=== PATIENT | female | born 1945 | race Caucasian/White ===

== ENCOUNTER 2016-12-09 10:36 | Inpatient (IN) | payer OTHER ==
[~2016-12-09] VITALS: Ht 170.2 cm; Wt 76.2 kg
--- NOTE | ~2016-12-09 | CNG ---
[facility] [place] [address] CYTO-NONGYN REPORT PROCEDURE Name: WILLOW DAVIS Room #: 421-P DIS IN M.R.#: [id number] Admission: 12/09/16 Date of : 43 Discharge: 12/11/16 Report #: [id number] Path Case #: [id number] CYTOPATHOLOGY REPORT COLLECTION DATE: 12/10/2016 RECEIVED DATE: 12/10/2016 SUBMITTING PHYS: Dr. Min Gonzalez OTHER PHYS: Dr. Chris Oquendo CLINICAL HISTORY: SOB/Pneumonia. PROCEDURE: A. Pass [address] Gonzalez yielding fluid. Two H and E slides, and 45 mL from needle rinsed in formalin were submitted to the lab. B. Passes1,[address] Gonzalez yielding fluid. Four H and E slides, and 45 mL from needle rinsed in formalin were submitted to the lab. SPECIMEN(S) RECEIVED: A.EBUS guided TBNA, Right lung mass B.EBUS guided TBNA, lymph node 7 C.Bronchial wash, NOS * * * * * * * * * * * * FINAL DIAGNOSIS: A. 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 . B. Lymph node, lymph node 7, EBUS guided TBNA: - FEW ATYPICAL CELLS IDENTIFIED ALONG WITH NECROSIS SUSPICIOUS FOR MALIGNANCY. - Background of reactive bronchial epithelial cells. - No definite lymph node tissue present. C. Lung, bronchial washing: - No definite malignant epithelial cells present. - Bronchial epithelial cells, reactive squamous epithelial cells as well as numerous alveolar macrophages along with inflammatory cells. COMMENT: Part A and B co-reviewed with Dr. Adriana Dalton. The concurrent biopsy tissue ([id number]) showed a squamous cell carcinoma as well. Please see separate report for details. (IUV:pit; 12/11/2016) PATHOLOGIST: Lea Cortés M.D. REPORT ELECTRONICALLY SIGNED BY: Lea Cortés M.D. [address] [address] CYTO-NONGYN REPORT PROCEDURE Name: WILLOW DAVIS Room #: 421-P [facility] IN ..#: [id number] Admission: 12/09/16 Date of : 43 Discharge: 12/11/16 Report #: [id number] Path Case #: [id number] DATE/TIME: 12/11/2016 16:35 * * * * * * * * * * * * GROSS PATHOLOGY: A. EBUS guided TBNA, Right lung mass: The specimen is labeled "Willow Davis" and consists of two H and E slides. Forty-five mL of red fluid in formalin from the needle rinse is also submitted and a cell block only was prepared from this material. B. EBUS guided TBNA, lymph node 7: The specimen is labeled "Willow Davis" and consists of four H and E slides. Forty-five mL of red fluid in formalin from the needle rinse is also submitted and a cell block only was prepared from this material. C. Bronchial wash, NOS: The specimen is submitted unfixed, labeled "Willow Davis". Received by the Cytology Department is 5 mL of red fluid. One ThinPrep slide was prepared. (clt 12.10.2016) IMMEDIATE EVALUATION: A. EBUS guided TBNA Right lung mass: Per Dr. Cortés: Atypical cells, lesional material present. B. EBUS guided TBNA Lymph node 7: Per Dr. Cortés: Pass 1-blood only. B. EBUS guided TBNA Lymph node 7: Per Dr. Cortés: Needle changed Pass 3- Bronchial epithelial cells and macrophages few histiocytes. Professional services performed under supervision of [facility] at [address] [place] [address] , [place] [address]. ULTRASOUND MANAGER(S): BIJAL Santos[facility] INITIAL CPT CODE(S): A; 13329, 63775, 94021 B; 01676, 63953, 00595, 64996 C; 16291 Professional services performed by [facility] at [address] [address] [address], [place] [address] Technical services performed by [facility] at [address] [place] [address]., [address], [place] [address]. [address], [address] [place] [address] PHONE: [phone] DIRECTOR: Pratik Maria M.D. * * * END OF REPORT * * *
--- NOTE | ~2016-12-09 | H ---
[facility] [place] [address] HISTORY AND PHYSICAL Name: WILLOW KEARNEY Room #: 421-P ADM IN M.R.#: [id number] Admission: 12/09/16 Attend Phys: Chris Cisneros MD, FAAF Discharge: Date of : 43 Report #: [id number] THIS REPORT FOR: //name// CC: Chris Cisneros DATE OF SERVICE: 12/09/2016 CHIEF COMPLAINTCHIEF COMPLAINT: Lung mass; cough; hemoptysis. HISTORY OF PRESENT ILLNESS: The patient is a 71-year-old white female, well known to me. She has been sick over the last several weeks with cough, some hemoptysis as well, and shortness of breath especially with exertion. She came to the office briefly today and I directed her immediately to the emergency department for a stat chest x-ray and labs. X-ray showed an infiltrate in the right lung. Her D-dimer was positive which prompted a CT scan of the chest with angiography. This showed a lung mass. She was admitted to the hospital, antibiotics were started, Rocephin and Zithromax, and pulmonology and cardiothoracic surgery consults were requested. PAST MEDICAL HISTORY: COPD, gallstones, laparoscopic cholecystectomy ____ in 2009, left endarterectomy, smoker's bronchitis, gastroesophageal reflux, venous insufficiency with bilateral great saphenous vein laser ablations. MEDICATIONS: Albuterol inhaler 2 puffs q.4 hours p.r.n. and p.r.n. aspirin 325 mg p.o. daily, Symbicort 160/4.5 two puffs b.i.d., DuoNeb inhalation solution one vial q.i.d. p.r.n., omeprazole 20 mg p.o. b.i.d. ALLERGIES: CELEBREX, MORPHINE, ADHESIVE TAPE, CODEINE. SOCIAL HISTORY: She is , smoked in the past, nondrinker. FAMILY HISTORY: Positive for diabetes. REVIEW OF SYSTEMS: CONSTITUTIONAL: No fever or chills, nausea, vomiting, diarrhea. EYES: No visual changes. ENT: No problems with hearing, swallow, taste or smell. CARDIOVASCULAR: She has chest congestion and painful cough. She has shortness of breath. RESPIRATORY: Shortness of breath, cough, hemoptysis, COPD now and new finding of lung mass. GASTROINTESTINAL: No abdominal pain. GENITOURINARY: No problems urinating. MUSCULOSKELETAL: Some arthritis. NEUROLOGIC: No paresis, paralysis or paresthesias. PSYCHIATRIC: No disturbing thoughts. [address] [address] HISTORY AND PHYSICAL Name: WILLOW KEARNEY Room #: 421-P [facility] IN ..#: [id number] Admission: 12/09/16 Attend Phys: Chris Cisneros MD, FAAF Discharge: Date of : 43 Report #: [id number] DERMATOLOGIC: No disturbing lesions or rash. Remainder of system review is negative. PHYSICAL EXAMINATION: VITAL SIGNS: Temperature 36.9, pulse 103, respirations 24. This is on 2 liters of oxygen by nasal cannula. Blood pressure is 132/69. Oxygen saturation on 2 L 99%. She weighs 167 pounds or 75.75 kilograms. GENERAL: She is in no acute distress. Wearing oxygen. Speaks full sentences and engages in conversation. HEENT: Pupils equal, round, reactive to light and accommodation. Extraocular muscles intact. Pharynx unremarkable. NECK: Supple. COR: S1, S2 regular. CHEST: Raspy breath sounds with cough, diminished airflow. ABDOMEN: Soft, nontender. EXTREMITIES: No edema. NEUROLOGIC: She is intact without focal deficit. LABORATORY DATA: EKG shows sinus tachycardia at 100 with normal axis, QRS intervals unchanged from September 2010. ABG; pH 7.493, pCO2 of 31.6, pO2 was 89.6, saturation was 96.7%. Carboxyhemoglobin 0.3. D-dimer 0.64. Glucose 113. Anion gap 6. White count is 19.6 with 88% segmented neutrophils, 10% lymphocytes. Serum chemistry: Sodium 140, potassium 3.8, chloride 103, CO2 of 31, BUN 17, creatinine 1.0. Estimated glomerular filtration rate 55. Calcium 9.1. Troponin less than 0.04. Hemoglobin 13.8, platelets 327,000. Chest x-ray showed a right lower lobe pneumonitis from pneumonia. CT scan with angiography showed a large right hilar mass invading the mediastinum especially involving the right middle and lower lobe hilar structures. There is encasement of the adjacent bronchi, pulmonary artery branches and pulmonary veins with incomplete opacifications in the right lower lobe pulmonary arteries to visualize the opacified pulmonary arteries, demonstrates no swelling defects to suggest pulmonary emboli. There is postobstructive pneumonia in the right middle lobe and lower lobe with small pleural effusion. Some increased mediastinal adenopathy as well as left hilar mass could be metastatic disease, second primary and left hilar region is not excluded, no adrenal metastatic disease is seen, the primary consideration would be bronchogenic carcinoma in the right hilar region with probable metastatic disease, a second malignancy of a separate origin in the left hilar region is not excluded. Adenopathy of other etiology considered, but less likely. [facility] [address] [place] [address] HISTORY AND PHYSICAL Name: WILLOW KEARNEY Room #: 421-P [facility] IN ..#: [id number] Admission: 12/09/16 Attend Phys: Chris Cisneros MD, EVELYN Discharge: Date of : 43 Report #: [id number] ASSESSMENT: Lung mass, cough, hemoptysis, chronic obstructive pulmonary disease, leukocytosis. <ELECTRONICALLY SIGNED> By: Chris Cisneros MD, SARAH, FACEP 12/10/16 1022 0046 0319 Chris Cisneros MD, SARAH, FACEP /nt
--- NOTE | ~2016-12-09 | EKG ---
[address] [address] [employer] [place] [address] ELECTROCARDIOGRAM REPORT Name: WILLOW KEARNEY Room #: [facility].#: [id number] Admission: Attend Phys: Discharge: Date of : 43 Report #: [id number] THIS REPORT FOR: //name// [facility] ED Test Date: 2016-12-09 Test Time: 10:41:54 Pat Name: WILLOW MILLERTATIANA Department: Room: Gender: F Hosiery Knitter: [id number] : 1945 Requested By: Bren De Souza Order Number: [id number] MD: Measurements Intervals Hermon Rate: 100 P: 47 NC: 181 QRS: 14 QRSD: 107 T: 57 QT: 329 QTc: 425 Interpretive Statements Sinus tachycardia Incomplete left bundle branch block ST elevation, consider inferior injury Compared to ECG 10/15/2012 10:40:33 Left bundle-branch block now present ST (T wave) deviation now present Myocardial infarct finding now present Sinus rhythm no longer present [email or web address] By: 1041 1041 Epiphany MD Claribel /EPI
--- NOTE | ~2016-12-09 | S ---
[facility] [place] [address] SURGICAL PATH RPT PROCEDURE Name: WILLOW KEARNEY Room #: 421-P DIS IN M.R.#: [id number] Admission: 12/09/16 Date of : 43 Discharge: 12/11/16 Report #: [id number] Path Case #: [id number] PATHOLOGY REPORT COLLECTION DATE: 12/10/2016 RECEIVED DATE: 12/10/2016 SUBMITTING PHYS: Dr. Min Gonzalez OTHER PHYS: Dr. Chris Oquendo SPECIMEN(S) RECEIVED: A.R lung mass * * * * * * * * * * * * FINAL DIAGNOSIS: Lung, right lung mass, biopsy: - INVASIVE MODERATELY DIFFERENTIATED SQUAMOUS CELL CARCINOMA. (IUV:betsy; 12/11/2016) COMMENT: Co-review: Dr. Adriana Dalton. Findings are communicated to Dr. Min Gonzalez at approximately 1:45 p.m. on 12/11/2016. (IUV:betsy; 12/11/2016) PATHOLOGIST: Lea Cortés M.D. REPORT ELECTRONICALLY SIGNED BY: Lea Cortés M.D. DATE/TIME: 12/11/2016 16:38 * * * * * * * * * * * * GROSS PATHOLOGY: Received in formalin labeled "Red Andre lung mass," are multiple (greater than 10) segments of caldwell soft tissue measuring 2.5 x 0.3 x 0.2 cm in aggregate dimensions and ranging from 0.2 to 0.4 cm in maximum dimension. The specimen is filtered and submitted entirely in cassette A1. (TSD; 12/10/2016) CLINICAL HISTORY: Shortness of breath/pneumonia INITIAL CPT CODE(S): A; 02239 Professional services performed by [facility] at [facility] [address] [place] [address] SURGICAL PATH RPT PROCEDURE Name: WILLOW KEARNEY Room #: 421-P DIS IN M.R.#: [id number] Admission: 12/09/16 Date of : 43 Discharge: 12/11/16 Report #: [id number] Path Case #: [id number] [address], [place] [address] Technical services performed by [facility] at [address] [place] [address], [facility] [address] [address]. [place] [address] PHONE: [phone] DIRECTOR: Pratik Maria M.D. * * * END OF REPORT * * *
--- NOTE | ~2016-12-09 | HC ---
[facility] [place] [address] CONSULTATION Name: WILLOW KEARNEY Room #: 421-P [facility] IN M.R.#: [id number] Admission: 12/09/16 Attend Phys: Chris Cisneros MD, [facility] Discharge: 12/11/16 Date of : 43 Report #: [id number] THIS REPORT FOR: //name// CC: Chris Cisneros MD DATE OF SERVICE: 12/09/2016 PULMONARY CONSULTATION DATE OF SERVICE: 12/09/2016 REFERRING PROVIDER: Chris Cisneros MD REASON FOR CONSULTATION: Abnormal CT scan of the chest. CHIEF COMPLAINT: Shortness of breath and chest pain. HISTORY OF PRESENT ILLNESS: Our group was asked to see the patient in consultation while hospitalized at [facility] and seen as a onetime consult in 06/2014 regarding her COPD, but no subsequently follow up on the patient's part. She has known history of COPD for which she has been taking Symbicort and nebulized treatments up to 4 times daily, has been having some increasing shortness of breath, some occasional cough with some clear to white sputum production. Has had some right-sided upper chest pain and shoulder pain, some of it posteriorly, somewhat pleuritic in nature and this prompted an Emergency Room visit today. Recently been on some systemic steroids and antibiotics with no improvement. On presentation to the Emergency Department, given symptoms, she underwent CT scan of the chest PE protocol, which revealed right hilar mass that seems to be obstructing right middle and lower lobe bronchus, perhaps the bronchus intermedius as well as some of the pulmonary vasculature on that side. Also appears to be a contralateral left hilar mass concerning for advanced lung cancer. The patient has also been complaining of some headaches and ear pain. Denies any fevers, chills or sweats. Minimal sputum production at this time, rare hemoptysis recently noted, not seeing improvement with her nebulized treatments. Only prior malignancy has been skin cancers. ALLERGIES: Include NARCOTICS, which she said caused rash and CELEBREX. PAST MEDICAL HISTORY: 1. History of lumbar spine disease, status post surgery. 2. History of cholecystectomy. 3. Chronic obstructive pulmonary disease. SOCIAL HISTORY: The patient is an ex-smoker, quitting about 5 years ago. [facility] [address] [place] [address] CONSULTATION Name: WILLOW KEARNEY Room #: 421-P [facility] IN [facility].#: [id number] Admission: 12/09/16 Attend Phys: Chris Cisneros MD, [facility] Discharge: 12/11/16 Date of : 43 Report #: [id number] significant alcohol consumption. Lives independently with her , but does have 47-klmx-klca history of tobacco use. FAMILY HISTORY: Significant for father who of an accident at 54 and mother with congestive heart failure and at 83. REVIEW OF SYSTEMS: CONSTITUTIONAL: No fevers, chills or sweats. ENT: No upper respiratory congestion or rhinorrhea. Has had some ear pain and headaches. CARDIOVASCULAR: Chest pain as described. GASTROINTESTINAL: No nausea, vomiting, diarrhea, constipation or abdominal pain. Has had some ongoing weight loss of about 35 pounds since April. GENITOURINARY: No dysuria, no frequency. INTEGUMENT: Denies any new rash. MUSCULOSKELETAL: No joint pains or swelling. PHYSICAL EXAMINATION: VITAL SIGNS: Afebrile, pulse 100 and regular, respiratory rate 24, blood pressure 142/80, oxygen saturation 98% on 2 liters. GENERAL: This is a pleasant elderly woman in no distress. HEENT: Clear oropharynx, Mallampati 2 airway, no thrush, no erythema. NECK: Supple, no lymphadenopathy. LUNGS: Diminished on the right, particularly right lower half of the chest with markedly diminished breath sounds, occasional wheeze. CARDIOVASCULAR: Heart is tachycardic, but regular. No murmurs noted. ABDOMEN: Soft, nontender, no masses. EXTREMITIES: Without edema. They are warm with 2+ pulses. INTEGUMENT: No rash noted. LABORATORY DATA: CT scan of the chest as described in HPI. White blood cell count 20,000, hemoglobin 14, hematocrit 42, platelet count 327. Sodium 140, potassium 3.8, chloride 103, bicarbonate 31, BUN 17, creatinine 1.0, glucose 113. Blood gas on 2 liters revealed pH 7.49, pCO2 of 32, pO2 of 90, bicarbonate 24. D-dimer was 0.64. IMPRESSION: 1. Right hilar mass and left hilar mass, worrisome for advanced lung cancer. 2. Chronic obstructive pulmonary disease with acute exacerbation. 3. Probable post-obstructive pneumonia. 4. Leukocytosis. SUGGESTIONS: 1. Change Rocephin to Zosyn and azithromycin. 2. Arrange for her fiberoptic bronchoscopy with biopsy. This may be best done with endobronchial ultrasound. Subsequent needle aspiration of the left hilar [facility] [address] [place] [address] CONSULTATION Name: WILLOW KEARNEY Room #: 421-P DIS IN M.R.#: [id number] Admission: 12/09/16 Attend Phys: Chris Cisneros MD, [facility] Discharge: 12/11/16 Date of : 43 Report #: [id number] mass as well as endobronchial mass on the right will need to be done under general anesthesia for endobronchial ultrasound portion. 3. MRI of the brain. 4. Consider PET scan as an outpatient to evaluate for further findings of advanced cancer. 5. Consider Oncology consultation. 6. Steroid taper. 7. Frequent bronchodilators. 8. Discussed at length with the patient and sister. All questions answered. <ELECTRONICALLY SIGNED> By: Min Gonzalez MD 12/12/16 1014 1455 1552 Min Gonzalez MD /nt
[2016-12-09 10:36] VITALS: BP 132/69
[~2016-12-09 10:36] MED LIST: ALBUTEROL2.5 MG/32 INH; ALEVE220 M1 PO; ALPRAZOLAM 0.0.25 M1 PO; ALPRAZOLAM 0.50.5 M1 PO; AMBIEN 5 MG TABL5 M1 PO; ASPIRIN325 PO; COLACE 100 MG100 MG PO; COLACE100 MG PO; DUONEB 2.5-0.5 M3 ML INH; HYDROCODON-ACE1 EAC5 PO; MAGNESIUM400 MG PO; MOM PO; MUCINEX600 MG PO; POTASSIUM99 M1 PO; PREDNISONE 20 M20 M1 PO; PRILOSEC 20 MG20 MG PO; PROAIR HFA8.5 GM INH; PROTONIX40 M2 PO; PROVENTIL HFA6.7 G1 INH; ROBAXIN 750 MG750 M1 PO; ROCEPHIN 1 GM VL1 G1 IV; SOLU-MEDRO125 MG/24 IV; SPIRIVA INH; SYMBICORT160 MCG/4. IH; XANAX 0.25 MG0.25 MG PO; ZITHROMAX
[2016-12-09 11:02] LABS: HEMATOCRIT 42.1 % (37.0-47.0); HEMOGLOBIN 13.8 gm/dL (12.0-15.0); MANUAL DIFF YES; MCH 26.7 pg (26.0-34.0); MCHC 32.9 g/dL (28.0-37.0); MCV 81.2 fL (80.0-100.0); PLATELET COUNT 327 thou/uL (150-400); RBC 5.18 mil/uL (4.20-5.00); WBC 19.6 thou/uL (4.0-11.0)
[2016-12-09 11:11] LABS: CALCIUM 9.1 mg/dL (8.5-10.1); POTASSIUM 3.8 mmol/L (3.5-5.1)
[2016-12-09 11:16] LABS: ABG SAMPLE TYPE ARTERIAL; BE(vivo) 1.2 mmol/L (-2 to +3); HCO3 23.7 mmol/L (22.0-26.0); LACTATE 1.65 mmol/L (0.5-2.0); O2(CT) 19.8 mL/dL (15.0-23.0); O2Hb 96.7 % (92.0-98.0); PCO2 31.6 mmHg (35.0-45.0); PO2 89.6 mmHg (80.0-100.0); STICK SITE R.RADIAL; pH 7.493 (7.360-7.450); sO2 97.5 % (92.0-98.0); tCO2 24.7 mmol/L (24.0-30.0)
[2016-12-09 11:30] LABS: ABSOLUTE NEUTROPHILS 17.2 thou/uL (1.4-8.2); PLATELET ESTIMATE NORMAL; TOTAL CELL COUNT 100
[2016-12-09 11:31] VITALS: BP 142/80
[2016-12-09 12:21] VITALS: BP 117/50
[2016-12-09 12:35] VITALS: BP 140/63
[2016-12-09 15:17] VITALS: BP 136/57
[2016-12-09 15:51] LABS: PROTIME 9.3 Seconds (9.3-11.4)
[2016-12-09 19:27] VITALS: BP 126/70
[2016-12-10 03:40] VITALS: BP 122/58
[2016-12-10 10:01] VITALS: BP 123/47
[2016-12-10 10:30] VITALS: BP 125/76
[2016-12-10 17:07] VITALS: BP 99/48
[2016-12-10 20:00] VITALS: BP 116/51
[2016-12-11 04:00] VITALS: BP 106/65
[2016-12-11 08:42] VITALS: BP 128/75
[2016-12-11] MEDS ORDERED: AUGMENTIN 875875 MG PO (10:07)
[2016-12-11 12:33] VITALS: BP 128/75
== END 2016-12-11 13:19 | disposition home or self-care (01) | DRG 166 ==
LOC: ER 10:36 → 4E 11:31 → EROBS 11:31 → 4E 12:26
PROVIDERS: Emergency Medicine; Internal Medicine Pulmonary Disease
PROC: 0BBF8ZX Excision of Right Lower Lung Lobe, Via Natural or Artificial Opening Endoscopic, Diagnostic (ICD-10-PCS; principal; 2016-12-10)
DX: J44.0 Chronic obstructive pulmonary disease with (acute) lower respiratory infection (principal); J18.9 Pneumonia, unspecified organism; R04.2 Hemoptysis; R91.8 Other nonspecific abnormal finding of lung field; J44.1 Chronic obstructive pulmonary disease with (acute) exacerbation; K21.9 Gastro-esophageal reflux disease without esophagitis; I73.9 Peripheral vascular disease, unspecified; Z90.49 Acquired absence of other specified parts of digestive tract; Z88.8 Allergy status to other drugs, medicaments and biological substances; Z88.6 Allergy status to analgesic agent; Z88.5 Allergy status to narcotic agent; Z88.3 Allergy status to other anti-infective agents; Z87.891 Personal history of nicotine dependence; Z85.828 Personal history of other malignant neoplasm of skin; Z99.81 Dependence on supplemental oxygen; Z82.49 Family history of ischemic heart disease and other diseases of the circulatory system
CPT/HCPCS: 10183; 50010; 62110; 62900; 70005

== ENCOUNTER 2017-01-03 10:17 | Inpatient (IN) | payer OTHER ==
[~2017-01-03] VITALS: Ht 172.7 cm; Wt 80.1 kg
--- NOTE | ~2017-01-03 | D ---
[facility] [place] [address] DISCHARGE SUMMARY Name: WILLOW KEARNEY Room #: 217-P ADM IN M.R.#: [id number] Admission: 01/03/17 Attend Phys: Juan Tellez DO Discharge: Date of : 43 Report #: [id number] THIS REPORT FOR: //name// CC: Chris Gonzalez DATE OF SERVICE: 01/12/2017 DATE OF ADMISSION: 01/03/2017 DATE OF DISCHARGE: 01/12/2017 HISTORY OF PRESENT ILLNESS: The patient is a 71-year-old female with newly diagnosed nonsmall cell lung cancer, with extensive metastases, who just recently had chemotherapy. The patient was admitted to the hospital for progressively worsening shortness of breath. Please refer to the admission H and P for details. HOSPITALIZATION COURSE: The patient was hospitalized for postobstructive pneumonia, as well as for COPD exacerbation. Shot Packer was consulted. The patient was started on broad spectrum antibiotics, as well as steroids and breathing treatments. The patient's condition gradually started to improve, but patient grossly remained short of breath. The patient had cardiac echo that showed normal ejection fraction, and mild pulmonary hypertension. Through the hospital course, the patient developed atrial fibrillation, brief episode, and she was converted to sinus rhythm. Housing Management Officer was consulted. The patient was started on diltiazem that is being continued at this time. The patient remains in sinus rhythm. Due to poor prognosis, the patient is not started on long-term anticoagulation. The patient was also seen by oncologist. No more chemotherapy is planned at this time, and the patient desires to go home on comfort care. Hospice team was consulted. The patient will be discharged home today under hospice care. DISCHARGE DIAGNOSES: 1. Postobstructive pneumonia. 2. Respiratory failure due to above, better, close to the baseline. 3. Chronic obstructive pulmonary disease, oxygen dependent. Chronic obstructive pulmonary disease exacerbation. Better. 4. Extensive nonsmall cell lung cancer as detailed above, newly diagnosed, status post recent chemotherapy. 5. Atrial fibrillation, paroxysmal, currently in normal sinus rhythm. The patient will be continued on diltiazem at the discharge. [address] [address] DISCHARGE SUMMARY Name: WILLOW KEARNEY Room #: 217-P [facility] IN .R.#: [id number] Admission: 01/03/17 Attend Phys: Juan Tellez DO Discharge: Date of : 43 Report #: [id number] DISCHARGE MEDICATIONS: Please refer to the medication reconciliation list. DISPOSITION: The patient is discharged home on hospice care. I spent more than 30 minutes to coordinate the patient's discharge from the hospital. By: 0813 0834 Ivan De La Cruz MD /nt
--- NOTE | ~2017-01-03 | H ---
[facility] [place] [address] HISTORY AND PHYSICAL Name: WILLOW KEARNEY Room #: 210-P ADM IN M.R.#: [id number] Admission: 01/03/17 Attend Phys: Jak Islas MD Discharge: Date of : 43 Report #: [id number] THIS REPORT FOR: //name// CC: Chris Islas DATE OF SERVICE: 01/03/2017 CHIEF COMPLAINT: Shortness of breath. HISTORY OF PRESENT ILLNESS: This pleasant woman has had chronic shortness of breath, diagnosed with moderately differentiated squamous cell cancer. Earlier in the month, she took her first treatment 2 days ago of Keytruda. She has had significant increasing shortness of breath with no significant sputum noted. No alleviating factors. No clear triggers. She is dyspneic at rest. She cannot lay down because of pain. PAST MEDICAL HISTORY: 1. Moderately differentiated squamous cell cancer. 2. COPD. 3. Gallstones. 4. Cholecystectomy. 5. Left endarterectomy. 6. GERD. 7. Venous insufficiency. 8. Saphenous vein ablation. 9. History of a right hilar mass with mediastinal lymphadenopathy with pleural effusions and moderately-differentiated squamous cell lung cancer. 10. MRI head 12/10/2016, atrophy, small vessel ischemic change. 11. CT chest, 12/09/2016, with angiography showed a small right-sided pleural effusion, 5 mm right middle lobe nodule, interstitial infiltrate, especially in the right middle lobe, right lower lobe, perhaps postobstructive with large right hilar mass. ALLERGIES: CODEINE and HYDROCODONE caused itching, CELEBREX, ADHESIVE TAPE and MORPHINE. SOCIAL HISTORY: . Significant history of smoking. No alcohol use. FAMILY HISTORY: Significant for diabetes. MEDICATIONS: Keytruda, DuoNeb and Prilosec. REVIEW OF SYSTEMS: No headache, visual changes, hearing changes, sore throat, epistaxis. She does have pain in her chest with movement and lying on the side with shortness of breath and dyspnea on exertion. No exertional chest pain. No [facility] [address] [place] [address] HISTORY AND PHYSICAL Name: WILLOW KEARNEY Room #: 210-P [facility] IN M.R.#: [id number] Admission: 01/03/17 Attend Phys: Jak Islas MD Discharge: Date of : 43 Report #: [id number] abdominal pain, nausea, vomiting, diarrhea, constipation, dysuria or skin rash. No focal weakness. She is diffusely weak. PHYSICAL EXAMINATION: GENERAL: Pleasant woman in moderate respiratory distress. VITAL SIGNS: Blood pressure 133/61, oxygen saturation 97%, heart rate 103 and temperature 97.7. HEENT: Conjunctivae pink. Nares clear. Oropharynx clear. NECK: Supple. No lymphadenopathy. No masses. LUNGS: With poor breath sounds on the right. Rhonchi. Increased expiratory phase on the left. There is dullness to percussion on the right. ABDOMEN: Soft, nontender and nondistended. EXTREMITIES: 1+ edema. NEUROLOGIC: The patient is awake, alert and oriented. DATA: CT angiogram of the chest today showed no evidence of pulmonary embolism. Large right lung mass with hilar, mediastinal and contralateral left-sided hilar adenopathy. Pleural fluid and postobstructive atelectasis and infiltrate on the right with right lower lobe pulmonary changes that have increased. Compression fractures likely old. Likely renal cysts. Lactic acid 1.0. BNP 99. Creatinine 0.8. Electrolytes normal. Troponin normal. White blood cell count 10.6, hemoglobin 13.5 and platelet count 274. IMPRESSION: 1. Increasing shortness of breath secondary to postobstructive pneumonia. Squamous cell moderately differentiated lung cancer that is progressing with underlying chronic obstructive pulmonary disease. 2. Reflux. 3. History of itching with CODEINE and HYDROCODONE and MORPHINE. She says she has done well with Percocet in the past. PLAN: Apparently oncology wishes to hold off on systemic glucocorticoids. We will provide antibiotics, bronchodilators, DVT prophylaxis. Pulmonary medicine has been consulted. The patient may be a candidate for interventional bronchoscopy. Oncology and pulmonary medicine will be seeing the patient. <ELECTRONICALLY SIGNED> By: Jak Islas MD 01/04/17 1106 1814 1848 Jak Islas MD /nt
--- NOTE | ~2017-01-03 | HC ---
[facility] [place] [address] CONSULTATION Name: WILLOW KEARNEY Room #: 210-P [facility] IN M.R.#: [id number] Admission: 01/03/17 Attend Phys: Jak Islas MD Discharge: Date of : 43 Report #: [id number] THIS REPORT FOR: //name// CC: EUGENIE Islas DATE OF SERVICE: 01/03/2017 REFERRING PROVIDER: Dr. Eugenie Cisneros. REASON FOR CONSULTATION: Shortness of breath, infiltrate, effusion. 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 Has a left Port-A-Cath in place. After hospital discharge, last evaluation noted some increasing shortness of breath; however, this became more severe overnight after starting therapy yesterday, some minor cough, low-grade fevers with temperature 99.1 at home. No chills or rigors. The patient is continued with inhaled therapy. No systemic steroids due to interaction with her Keytruda treatment. Currently, denies any chest pain in the Emergency Department. Chest radiograph revealed what appeared to be a pleural effusion in addition to the right lower lobe infiltrate. ALLERGIES: INCLUDE NARCOTICS, CELEBREX. PAST MEDICAL HISTORY: 1. History of extensive advanced squamous cell carcinoma of the lung. 2. Prior cholecystectomy. 3. Chronic obstructive pulmonary disease. 4. Lumbar spine disease. SOCIAL HISTORY: Ex-smoker, quitting 5 years ago. No significant alcohol consumption. Lives with her independently in [place], [place] on several acres. FAMILY HISTORY: Significant for father of an accident at 54, mother had congestive heart failure. INPATIENT MEDICATIONS: Include Zosyn, Levaquin and DuoNebs. REVIEW OF SYSTEMS: CONSTITUTIONAL: No fevers, chills, some low grade fever, no chills or sweats. ENT: No upper respiratory congestion, rhinorrhea or dysphagia. [facility] [address] [place] [address] CONSULTATION Name: ANGELAWILLOW SIMPSON Room #: 210-P [facility] IN ..#: [id number] Admission: 01/03/17 Attend Phys: Jak Islas MD Discharge: Date of : 43 Report #: [id number] CARDIOVASCULAR: No chest pain or palpitations. GASTROINTESTINAL: No nausea, vomiting, diarrhea, constipation or abdominal pain. GENITOURINARY: No dysuria, no frequency. INTEGUMENT: Denies any rash. MUSCULOSKELETAL: No joint pains. There is only some mild lower extremity edema. PHYSICAL EXAMINATION: VITAL SIGNS: Afebrile, pulse 100 and regular, respiratory rate 26, blood pressure 133/61, oxygen saturation 97% on 2 liters. GENERAL: This is an obese, elderly woman in moderate respiratory distress. ENT: Clear oropharynx. NECK: Supple, no lymphadenopathy. LUNGS: Markedly diminished in the right with diffuse expiratory wheezes noted throughout. CARDIOVASCULAR: Heart regular. No murmurs or gallops. ABDOMEN: Soft, nontender, no masses. EXTREMITIES: Trace edema. LABORATORY DATA: Chemistry profile within normal limits except for a mildly elevated glucose. White blood cell count 11,000; hemoglobin 14, hematocrit 40, platelet count 274. CT scan of the chest PE protocol done at my request did not reveal any pulmonary emboli. There has been significant increase in lung mass and post-obstructive infiltrates and atelectasis, very small pleural effusion or intraparenchymal abscessed area is noted on imaging. IMPRESSION: 1. Extensive lung cancer with involvement of the right lower lobe bronchus. 2. Post-obstructive pneumonitis. 3. Probable lung abscess and/or pulmonary infarction associated with the above. 4. Severe chronic obstructive pulmonary disease. SUGGESTIONS: 1. Continue with antibiotics. 2. Bronchodilators. 3. No systemic steroids at this time. 4. Continuous oximetry. 5. Await cultures. 6. Further recommendations to follow. Thank you for requesting our suggestions. By: 1745 [id number] Min Gonzalez MD /nt
--- NOTE | ~2017-01-03 | 2DMMODE ---
[facility] [address] [place] [address] 2 D/M-MODE ECHOCARDIOGRAM Name: WILLOW KEARNEY Room #: 217-P [facility] IN .R.#: [id number] Admission: 01/03/17 Attend Phys: Juan Tellez, Discharge: Date of : 43 Date of Service: 01/07/17 1042 Report #: [id number] THIS REPORT FOR: //name// APPROVED REPORT Study performed: 01/07/2017 09:50:00 EXAM: Comprehensive 2D, Doppler, and color-flow Echocardiogram Patient Location: Bedside Room #: [facility] Status: routine BSA: 1.91 HR: 85 bpm BP: 147/75 mmHg Rhythm: NSR Other Information Study Quality: Technically Limited due to constant chest movement due to heavy breathing. Unable to position patient. Indications Afib with RVR, SOA, COPD 2D Dimensions RVDd: 39.16 mm LVEF(%): 43.95 (>50%) IVSd: 11.92 (7-11mm) LVOT Diam: 22.41 (18-24mm) LVDd: 48.16 mm PWd: 8.86 (7-11mm) Ascending Ao: 28.27 (22-36mm) LVDs: 37.68 (25-40mm) Aortic Root: 35.39 mm Garcia's LVEF: 43.95 % Volumes Left Atrial Volume (Systole) Single Plane 4CH: 25.95 mL Single Plane 2CH: 48.43 mL LA ESV Index: 21.00 mL/m2 Aortic Valve AoV Peak Kapil.: 1.55 m/s AO Peak Gr.: 9.63 mmHg LVOT Max P.23 mmHg LVOT Max V: 1.14 m/s SHAGGY Vmax: 2.91 cm2 Mitral Valve MV Decel. Time: 127.15 ms [facility] [place] [place] [address] 2 D/M-MODE ECHOCARDIOGRAM Name: WILLOW KEARNEY Room #: 217-P [facility] IN ..#: [id number] Admission: 01/03/17 Attend Phys: Juan Tellez, Discharge: Date of : 43 Date of Service: 01/07/17 1042 Report #: [id number] MV PHT: 36.87 ms IVRT: 62.28 ms Pulmonary Valve PV Peak Kapil.: 1.27 m/s PV Peak Gr.: 6.47 mmHg Tricuspid Valve TR Peak Kapil.: 2.55 m/s RAP Estimate: 10.00 mmHg TR Peak Gr.: 26.07 mmHg PA Pressure: 36.00 mmHg Left Ventricle The left ventricle is normal size. Mild basal septal hypertrophy is present. Left ventricular systolic function is borderline. LVEF is 50-55%. Mild diastolic dysfunction is present (impaired relaxation pattern). Right Ventricle The right ventricle is normal size. The right ventricular systolic function is normal. Atria The left atrium size is normal. The right atrium size is normal. Aortic Valve Aortic valve is mildly calcified. No aortic regurgitation is present. There is no aortic valvular stenosis. Mitral Valve Mitral valve leaflets are mildly thickened and calcified. Trace to mild mitral regurgitation. Tricuspid Valve The tricuspid valve is normal in structure. There is trace to mild tricuspid regurgitation. The right atrial pressure is estimated at 10 mmHg. There is mild pulmonary hypertension with an estimated PAP of 36mmHg. Pulmonic Valve The pulmonary valve is normal in structure. Great Vessels The aortic root is normal in size. The ascending aorta is normal in size. IVC is normal in size and collapses <50% with inspiration. [address] [address] 2 D/M-MODE ECHOCARDIOGRAM Name: WILLOW KEARNEY Karrie Room #: 217-P [facility] IN .R.#: [id number] Admission: 01/03/17 Attend Phys: Juan Tellez, Discharge: Date of : 43 Date of Service: 01/07/17 1042 Report #: [id number] Pericardium There is no pericardial effusion. Right pleural effusion noted. <Conclusion> The left ventricle is normal size. LVEF is 50-55%. Aortic valve is mildly calcified. Mitral valve leaflets are mildly thickened and calcified. Trace to mild mitral regurgitation. The tricuspid valve is normal in structure. There is trace to mild tricuspid regurgitation. The right atrial pressure is estimated at 10 mmHg. There is mild pulmonary hypertension with an estimated PAP of 36mmHg. Right pleural effusion noted. There is no pericardial effusion. <ELECTRONICALLY SIGNED> By: Barry Richards MD 01/07/17 1042 1042 104 Barry Richards MD /INF
--- NOTE | ~2017-01-03 | EKG ---
[address] [place] [address] ELECTROCARDIOGRAM REPORT Name: WILLOW KEARNEY Room #: 217-P ADM IN M.R.#: [id number] Admission: 01/03/17 Attend Phys: Juan Tellez DO Discharge: Date of : 43 Report #: [id number] THIS REPORT FOR: //name// [facility] Test Date: 2017-01-06 Test Time: 03:37:32 Pat Name: WILLOW KEARNEY Department: Room: 217 P Gender: F Birth Attendant: marcellus : 1945 Requested By: Hope Oquendo Order Number: [id number] MD: Demarcus Vaughn Measurements Intervals Taylor Rate: 132 P: CT: QRS: 25 QRSD: 83 T: QT: 289 QTc: 428 Interpretive Statements Atrial fibrillation Borderline low voltage, extremity leads Borderline ST depression Baseline wander in lead(s) V2 Compared to ECG 12/09/2016 10:41:54 Atrial fibrillation has replaced sinus rhythm Electronically Signed On 01-07-2017 8:17:17 CDT by Demarcus Vaughn [email or web address] <ELECTRONICALLY SIGNED> By: Demarcus Vaughn MD, [facility] 01/07/17 0817 0337 0337 Demarcus Vaughn MD, [facility] /EPI
--- NOTE | ~2017-01-03 | EKG ---
[place] [address] [address] [facility] [email or web address] [address] ELECTROCARDIOGRAM REPORT Name: WILLOW KEARNEY Room #: 217-P ADM IN M.R.#: [id number] Admission: 01/03/17 Attend Phys: Juan Tellez DO Discharge: Date of : 43 Report #: [id number] THIS REPORT FOR: //name// [facility] Test Date: 2017-01-03 Test Time: 10:45:33 Pat Name: WILLOW KEARNEY Department: Room: 217 Gender: F Folder Machine Adjuster: [id number] : 1945 Requested By: Theodora Quintero Order Number: [id number] MD: Demarcus Vaughn Measurements Intervals Mather Rate: 96 P: 40 AK: 200 QRS: 2 QRSD: 89 T: 56 QT: 338 QTc: 428 Interpretive Statements Sinus rhythm Borderline low voltage, extremity leads Compared to ECG 12/09/2016 10:41:54 No significant change was found Electronically Signed On 01-06-2017 13:25:11 CDT by Demarcus Vaughn [email or web address] <ELECTRONICALLY SIGNED> By: Demarcus Vaughn MD, [facility] 01/06/17 1325 1045 1045 Demarcus Vaughn MD, [facility] /EPI
--- NOTE | ~2017-01-03 | HC ---
[facility] [place] [address] CONSULTATION Name: WILLOW KEARNEY Room #: 217-P [facility] IN M.R.#: [id number] Admission: 01/03/17 Attend Phys: Juan Tellez DO Discharge: Date of : 43 Report #: [id number] THIS REPORT FOR: //name// CC: Chris Mustafarick Carlos DATE OF SERVICE: 01/06/2017 HISTORY OF PRESENT ILLNESS: This is a very pleasant 71-year-old female patient who presented to the Emergency Room because of shortness of breath. The patient has extensive non-small cell cancer, and initiated the first course of chemotherapy presently. While hospitalized, she was found to be in atrial fibrillation that became ____ spontaneously. She had been using nebulizers at home, but on the day of admission, she woke up short of breath, sweaty, diaphoretic. Upon further questioning, she denies any prior history of any irregular heartbeats, palpitations, ____. She does not have any prior history of coronary artery disease either. PAST MEDICAL HISTORY: 1. COPD. 2. Tobacco use and dependence. 3. Peripheral vascular disease. 4. Gastroesophageal reflux disease. 5. Bronchitis with COPD. PAST SURGICAL HISTORY: 1. Laminectomy. 2. Left carotid endarterectomy. 3. Laparoscopic cholecystectomy. MEDICATIONS: At home are Augmentin, ProAir, aspirin, Symbicort, DuoNeb and Prilosec. ALLERGIES: MORPHINE, ADHESIVE TAPE, CODEINE AND CELEBREX. SOCIAL HISTORY: The patient is . She is a former smoker. She does not consume alcohol. She does not follow up with exercise regimen or dietary restriction. Echocardiogram on admission is normal sinus rhythm and electrocardiogram demonstrates atrial fibrillation with rate control and rapid ventricular response. LABORATORY DATA: Demonstrates a BUN and creatinine of 12 and 0.8. Potassium is 12.1. H and H is 13.5 and 40.0. [facility] [address] [place] [address] CONSULTATION Name: WILLOW KEARNEY Room #: 217-P [facility] IN ..#: [id number] Admission: 01/03/17 Attend Phys: Juan Tellez DO Discharge: Date of : 43 Report #: [id number] RADIOLOGICAL AND CHEST X-RAY: Demonstrates moderate ____ effusions with atelectasis. REVIEW OF SYSTEMS: Except for symptoms previously mentioned and those commensurate with comorbid state, the 10-point review of systems is negative. PHYSICAL EXAMINATION: GENERAL: Well developed, well-nourished female, resting comfortably, in no acute distress. VITAL SIGNS: Noted and reviewed in chart. HEENT: Pupils equal, round, and reactive to light. EOMI. There is no scleral icterus. NECK: C-spine is soft and supple, there is no meningismus. There is no cervical lymphadenopathy. LUNGS: Demonstrates diffuse rhonchi and some expiratory wheezes noted. HEART: Regular rate and rhythm, no murmurs, clicks, rubs or gallops. ABDOMEN: Soft, nontender, nondistended. There are bowel sounds in all four quadrants. No rebound or guarding. EXTREMITIES: There is no peripheral cyanosis or edema. No focal swelling or erythema. NEURO: The patient moves all four extremities with 5/5 strength. Cranial nerves II - XII are intact. Normal gait. Alert and oriented SKIN: There is no apparent rash or petechiae. HEME/LYMPHATIC: There is no evidence of excessive bruising or lymphedema. PSYCHIATRIC: The patient does not appear anxious or depressed. IMPRESSION AND PLAN: 1. Atrial fibrillation, paroxysmal with a rapid rate, clearly secondary to comorbidities. In view of that, I think that we need to continue the IV diltiazem until we get an echocardiogram to evaluate left ventricular function, so we can further delineate, which medications are most appropriate. 2. ____ with non-small cell lung cancer as per pulmonary. 3. Peripheral vascular disease that does not appear to be initiative junction without any symptoms present. 4. Gastroesophageal reflux disease, on medicines at home and currently inactive and not an issue. <ELECTRONICALLY SIGNED> By: Barry Richards MD 01/07/17 0949 2217 2326 Barry Richards MD /nt
[~2017-01-03 10:17] MED LIST changes: +AUGMENTIN 875875 MG PO
[2017-01-03 10:52] LABS: ABSOLUTE NEUTROPHILS 7.6 thou/uL (1.4-8.2); EOSINOPHILS 3.4 % (0.0-3.0); HEMOGLOBIN 13.5 gm/dL (12.0-15.0); LYMPHOCYTES 15.4 % (24.0-44.0); MCH 27.3 pg (26.0-34.0); MCHC 33.7 g/dL (28.0-37.0); MONOCYTES 9.1 % (1.0-8.0); PLATELET COUNT 274 thou/uL (150-400); POLYS 71.1 % (36.0-66.0); RBC 4.94 mil/uL (4.20-5.00); WBC 10.6 thou/uL (4.0-11.0)
[2017-01-03 10:53] LABS: MANUAL DIFF NO
[2017-01-03 11:02] LABS: ANION GAP 6 mmol/L (7-16); BUN 12 mg/dL (7-18); CALCIUM 9.5 mg/dL (8.5-10.1); CHLORIDE 103 mmol/L (98-107); CO2 32 mmol/L (21-32); CREATININE 0.8 mg/dL (0.6-1.0); GLUCOSE 138 mg/dL (74-106); POTASSIUM 4.1 mmol/L (3.5-5.1); SODIUM 141 mmol/L (136-145)
[2017-01-03 11:11] LABS: TROPONIN-I < 0.04 ng/mL (<0.04-0.07)
[2017-01-03 12:18] VITALS: BP 121/62
[2017-01-03 13:06] VITALS: BP 117/64
[2017-01-03 13:20] VITALS: BP 129/62
[2017-01-03 15:50] VITALS: BP 133/61
[2017-01-03 19:36] VITALS: BP 120/55
[2017-01-04] VITALS (34 sets, daily range): BP systolic 108–177; BP diastolic 48–161
[2017-01-04 13:24] LABS: ABG SAMPLE TYPE ARTERIAL; BE(vivo) -2.2 mmol/L (-2 to +3); HCO3 25.2 mmol/L (22.0-26.0); LACTATE 0.86 mmol/L (0.5-2.0); O2(CT) 18.6 mL/dL (15.0-23.0); O2Hb 96.2 % (92.0-98.0); PCO2 54.2 mmHg (35.0-45.0); PO2 96.3 mmHg (80.0-100.0); sO2 96.5 % (92.0-98.0); tCO2 26.9 mmol/L (24.0-30.0)
[2017-01-04 13:25] LABS: STICK SITE R.RADIAL; pH 7.286 (7.360-7.450)
[2017-01-04 13:26] LABS: Pressure Support 12 cm H20; VDS BIPAP SPONT TIMED cc
[2017-01-05] VITALS (19 sets, daily range): BP systolic 79–164; BP diastolic 48–97
[2017-01-05 06:11] LABS: HEMATOCRIT 36.2 % (37.0-47.0); HEMOGLOBIN 11.8 gm/dL (12.0-15.0); MCH 26.4 pg (26.0-34.0); MCHC 32.6 g/dL (28.0-37.0); MCV 80.9 fL (80.0-100.0); RBC 4.48 mil/uL (4.20-5.00); RDW 14.5 % (10.5-14.5); WBC 8.6 thou/uL (4.0-11.0)
[2017-01-05 06:27] LABS: CALCIUM 9.1 mg/dL (8.5-10.1); CREATININE 1.3 mg/dL (0.6-1.0); POTASSIUM 4.2 mmol/L (3.5-5.1)
[2017-01-06] VITALS (14 sets, daily range): BP systolic 122–168; BP diastolic 57–83
[2017-01-06 04:58] LABS: HEMATOCRIT 34.8 % (37.0-47.0); HEMOGLOBIN 11.4 gm/dL (12.0-15.0); MCH 26.8 pg (26.0-34.0); MCHC 32.6 g/dL (28.0-37.0); RBC 4.24 mil/uL (4.20-5.00); RDW 15.2 % (10.5-14.5); WBC 20.1 thou/uL (4.0-11.0)
[2017-01-06 05:15] LABS: CREATININE 1.2 mg/dL (0.6-1.0); POTASSIUM 4.1 mmol/L (3.5-5.1)
[2017-01-07 03:31] VITALS: BP 158/86
[2017-01-07 07:45] VITALS: BP 147/75
[2017-01-07 12:11] VITALS: BP 158/70
[2017-01-07 16:49] VITALS: BP 148/50
[2017-01-07 20:00] VITALS: BP 135/72
[2017-01-08 02:46] VITALS: BP 141/75
[2017-01-08 03:58] LABS: HEMATOCRIT 33.6 % (37.0-47.0); HEMOGLOBIN 11.2 gm/dL (12.0-15.0); MCH 27.2 pg (26.0-34.0); MCHC 33.3 g/dL (28.0-37.0); MCV 81.6 fL (80.0-100.0); PLATELET COUNT 307 thou/uL (150-400); RBC 4.12 mil/uL (4.20-5.00); RDW 14.9 % (10.5-14.5); WBC 13.7 thou/uL (4.0-11.0)
[2017-01-08 04:03] LABS: MANUAL DIFF YES
[2017-01-08 04:12] LABS: ALBUMIN 2.8 g/dL (3.4-5.0); TOTAL BILIRUBIN 0.3 mg/dL (<0.1-1.0)
[2017-01-08 05:03] LABS: ABSOLUTE NEUTROPHILS 11.9 thou/uL (1.4-8.2); ATYPICAL LYMPHS 4 %; TOTAL CELL COUNT 100
[2017-01-08 07:28] VITALS: BP 143/63
[2017-01-08 11:48] VITALS: BP 145/74
[2017-01-08 15:38] VITALS: BP 154/83
[2017-01-08 16:59] VITALS: BP 126/44
[2017-01-09 03:56] LABS: CALCIUM 9.1 mg/dL (8.5-10.1); MAGNESIUM 2.5 mg/dL (1.8-2.4); POTASSIUM 3.9 mmol/L (3.5-5.1)
[2017-01-09 04:00] LABS: HEMOGLOBIN 11.8 gm/dL (12.0-15.0); MCH 26.7 pg (26.0-34.0); MCHC 32.9 g/dL (28.0-37.0); MCV 81.3 fL (80.0-100.0); PLATELET COUNT 346 thou/uL (150-400); RBC 4.43 mil/uL (4.20-5.00); RDW 15.2 % (10.5-14.5); WBC 15.5 thou/uL (4.0-11.0)
[2017-01-09 04:15] LABS: MANUAL DIFF YES
[2017-01-09 06:15] LABS: TOTAL CELL COUNT 100
[2017-01-09 07:21] LABS: ABG SAMPLE TYPE ARTERIAL; BE(vivo) 1.4 mmol/L (-2 to +3); HCO3 26.5 mmol/L (22.0-26.0); LACTATE 1.06 mmol/L (0.5-2.0); O2(CT) 16.9 mL/dL (15.0-23.0); O2Hb 96.7 % (92.0-98.0); PO2 107.8 mmHg (80.0-100.0); STICK SITE R.RADIAL; pH 7.398 (7.360-7.450); sO2 97.9 % (92.0-98.0); tCO2 27.9 mmol/L (24.0-30.0)
[2017-01-09 07:36] VITALS: BP 180/91
[2017-01-09 11:40] VITALS: BP 163/83
[2017-01-09 15:20] VITALS: BP 146/59
[2017-01-09 19:21] VITALS: BP 151/68
[2017-01-10 02:49] VITALS: BP 1558/91
[2017-01-10 03:55] LABS: HEMATOCRIT 37.4 % (37.0-47.0); HEMOGLOBIN 12.1 gm/dL (12.0-15.0); MCH 26.6 pg (26.0-34.0); MCHC 32.4 g/dL (28.0-37.0); MCV 81.9 fL (80.0-100.0); RBC 4.57 mil/uL (4.20-5.00); WBC 15.1 thou/uL (4.0-11.0)
[2017-01-10 03:57] LABS: ALBUMIN 2.8 g/dL (3.4-5.0); CALCIUM 8.8 mg/dL (8.5-10.1); MAGNESIUM 2.4 mg/dL (1.8-2.4); TOTAL BILIRUBIN 0.5 mg/dL (<0.1-1.0); TOTAL PROTEIN 6.2 g/dL (6.4-8.2)
[2017-01-10 07:55] VITALS: BP 177/85
[2017-01-10 11:14] VITALS: BP 151/83
[2017-01-10 15:39] VITALS: BP 170/93
[2017-01-10 20:10] VITALS: BP 170/75
[2017-01-11 02:22] VITALS: BP 175/80
[2017-01-11 05:15] VITALS: BP 159/76
[2017-01-11 05:37] LABS: MCHC 33.4 g/dL (28.0-37.0); MCV 80.8 fL (80.0-100.0); PLATELET COUNT 398 thou/uL (150-400); RBC 4.83 mil/uL (4.20-5.00); WBC 15.1 thou/uL (4.0-11.0)
[2017-01-11 05:44] LABS: MANUAL DIFF YES
[2017-01-11 05:51] LABS: ALBUMIN 3.1 g/dL (3.4-5.0); CALCIUM 8.9 mg/dL (8.5-10.1); CREATININE 0.9 mg/dL (0.6-1.0); MAGNESIUM 2.3 mg/dL (1.8-2.4); POTASSIUM 3.5 mmol/L (3.5-5.1); TOTAL BILIRUBIN 0.7 mg/dL (<0.1-1.0); TOTAL PROTEIN 6.5 g/dL (6.4-8.2)
[2017-01-11 06:14] LABS: ANISOCYTOSIS 1+; TOTAL CELL COUNT 100
[2017-01-11 06:15] LABS: POLYCHROMASIA OCCASIONAL
[2017-01-11 07:40] VITALS: BP 138/76
[2017-01-11 10:20] VITALS: BP 169/87
[2017-01-11 15:19] VITALS: BP 144/68
[2017-01-11 20:30] VITALS: BP 150/73
[2017-01-12 06:15] VITALS: BP 165/85
[2017-01-12 07:15] VITALS: BP 165/85
[2017-01-12 08:19] VITALS: BP 165/85
[2017-01-12] MEDS ORDERED: CARDIZEM CD 18180 M3 PO (08:26)
[2017-01-12] MEDS ORDERED: AUGMENTIN 875-1 EACH PO (08:26)
[2017-01-12] MEDS ORDERED: PREDNISONE 10 M10 MG PO (08:26)
[2017-01-12] MEDS ORDERED: OXYGEN MISCELL (08:49)
== END 2017-01-12 09:30 | disposition hospice, home (50) | DRG 177 ==
LOC: ER 10:17 → EROBS 12:06 → 2N 12:06 → ICU 12:06 → 2N 13:07 → ICU 01-04 11:51 → 2N 01-05 14:19
PROVIDERS: Emergency Medicine; Hospitalist; Internal Medicine Pulmonary Disease; Nurse Practitioner; Nurse Practitioner Family
PROC: 5A09557 Assistance with Respiratory Ventilation, Greater than 96 Consecutive Hours, Continuous Positive Airway Pressure (ICD-10-PCS; principal; 2017-01-04)
DX: J85.1 Abscess of lung with pneumonia (principal); J96.01 Acute respiratory failure with hypoxia; J96.02 Acute respiratory failure with hypercapnia; C34.90 Malignant neoplasm of unspecified part of unspecified bronchus or lung; J44.1 Chronic obstructive pulmonary disease with (acute) exacerbation; J44.0 Chronic obstructive pulmonary disease with (acute) lower respiratory infection; J90 Pleural effusion, not elsewhere classified; E46 Unspecified protein-calorie malnutrition; K21.9 Gastro-esophageal reflux disease without esophagitis; I73.9 Peripheral vascular disease, unspecified; I48.0 Paroxysmal atrial fibrillation; K59.00 Constipation, unspecified; F41.9 Anxiety disorder, unspecified; Z90.49 Acquired absence of other specified parts of digestive tract; Z87.891 Personal history of nicotine dependence; Z79.899 Other long term (current) drug therapy; Z88.5 Allergy status to narcotic agent; Z88.8 Allergy status to other drugs, medicaments and biological substances; Z88.6 Allergy status to analgesic agent; Z82.49 Family history of ischemic heart disease and other diseases of the circulatory system; Z83.3 Family history of diabetes mellitus; Z68.26 Body mass index [BMI] 26.0-26.9, adult
CPT/HCPCS: 10081; 10203